=== PATIENT | male | born 1965 | race Hispanic/Latino ===

== ENCOUNTER → 2017-12-14 | Outpatient (CLI) | payer BC ==
[~2017-12-14] MED LIST: ASPI81TA40 PO; LEVO500T2 PO; LOSA25TA16 PO; METR500T PO
[2017-12-14 12:37] LABS: CREATININE 1.2 mg/dL (0.5-1.5)
== END | disposition home or self-care (01) ==
LOC: LAB 11:51
PROVIDERS: ATTEND Family Medicine
DX: R10.9 Unspecified abdominal pain (principal)
CPT/HCPCS: 36415; 82565; 84520

== ENCOUNTER → 2017-12-14 | Outpatient (CLI) | payer BC, SELFPAY ==
[~2017-12-14] MED LIST changes: +DIATR MEGLU/DIATRIZOATE SODIUM 30 ML BOTTLE ONE; +IOHEXOL-350 75 ML VIAL IV ONE
== END | disposition home or self-care (01) ==
LOC: RAH 11:17
PROVIDERS: ATTEND Family Medicine
DX: K76.0 Fatty (change of) liver, not elsewhere classified (principal)
CPT/HCPCS: 74177; Q9963; Q9967

== ENCOUNTER 2019-10-02 00:15 | Inpatient (IN) | payer BC, OTHER ==
[~2019-10-02] VITALS: Ht 180.3 cm; Wt 91.9 kg
[2019-10-02] MEDS ORDERED: AZITHROMYCIN 500MG+NS 250ML 250 ML IV ONE (01:57)
[2019-10-02] MEDS ORDERED: CEFTRIAXONE SODIUM 1 GM ONE (01:57)
[2019-10-02] MEDS ORDERED: SODIUM CHLORIDE 0.9% 50 ML IV ONE (01:59)
[2019-10-02] MEDS ORDERED: DEXTROSE 50%-WATER 50 ML DISP.SYRIN IV PRN (03:15)
[2019-10-02] MEDS ORDERED: ALBUTEROL INHALER 90MCG/INH IH PRN (03:15)
[2019-10-02] MEDS ORDERED: METHYLPREDNISOLONE SOD SUCC 40MG/ML 1ML IVP SCH (03:15)
[2019-10-02] MEDS ORDERED: GLUCAGON 1MG KIT 1 MG ML IM PRN (03:15)
[2019-10-02] MEDS ORDERED: SODIUM CHLORIDE 0.9% 1000ML 1,000 ML IV SCH (03:16)
[2019-10-02] MEDS ORDERED: DIPHENHYDRAMINE HCL 25 MG CAPSULE PO PRN (03:30)
[2019-10-02] MEDS ORDERED: NITROGLYCERIN 0.4 MG SL TAB SL PRN (03:30)
[2019-10-02] MEDS ORDERED: ACETAMINOPHEN 325 MG TAB PO PRN ×2 (03:30)
[2019-10-02] MEDS ORDERED: IOHEXOL-350 75 ML VIAL IV ONE (03:34)
[2019-10-02] MEDS ORDERED: SODIUM CHLORIDE 0.9% 1000ML 1,000 ML IV ONE (04:05)
[2019-10-02] MEDS ORDERED: METHYLPREDNISOLONE SOD SUCC 40MG/ML 1ML ONE ×4 (04:05→21:04)
[2019-10-02] MEDS: INSULIN HUMULIN R 100 UNIT/ML 3ML SQ SCH ×4 (07:30→21:00)
[2019-10-02] MEDS ORDERED: ENOXAPARIN SODIUM 30 MG/0.3 ML SQ ONE (08:18)
[2019-10-02] MEDS ORDERED: PANTOPRAZOLE SODIUM 40 MG TABLET.DR ONE (08:19)
[2019-10-02] MEDS ORDERED: ENOXAPARIN SODIUM 30 MG/0.3 ML SQ SCH (09:00)
[2019-10-02] MEDS ORDERED: PANTOPRAZOLE SODIUM 40 MG TABLET.DR PO SCH (09:00)
[2019-10-02] MEDS: ZOSYN 3.375GM+NS 50ML 50 ML IV SCH ×2 (13:00→21:00)
[2019-10-02] MEDS ORDERED: ALBUTEROL INHALER 90MCG/INH IH ONE (14:05)
--- NOTE | 2019-10-02 16:21 | NUR ---
SPOKE TO PATIENT ON THE PHONE FOR DC PLANNING ACTIVE, EMPLOYED, DRIVES, NO DME, LIVES WITH 2 CHILDREN AND SPOUSE MARÍA ELENA WHO WILL PROVIDE TRANSPORT. WHOLE FAMILY COVID +. ON OXYGEN AT THIS TIME. DCP IS HOME , POSS NEED FOR O2 AT DISCHARGE Addendum: 10/02/19 at 1622 by LUZ CORNELL RN CM Amended: Links added.
[2019-10-02] MEDS ORDERED: METHYLPREDNISOLONE SOD SUCC 125MG/2ML VIAL IVP SCH (20:00)
[2019-10-02] MEDS ORDERED: ACETAMINOPHEN EXTRA STRENGTH 500 MG TABLET ONE (20:57)
[2019-10-02] MEDS: ENOXAPARIN SODIUM 100 MG/1 ML SQ SCH (21:00)
[2019-10-02] MEDS: FAMOTIDINE 20MG TAB 20 MG TAB PO SCH (21:00)
[2019-10-02] MEDS ORDERED: ENOXAPARIN SODIUM 100 MG/1 ML SQ ONE (22:56)
[2019-10-02] MEDS ORDERED: ZOSYN 3.375GM+NS 50ML 50 ML IV ONE (22:56)
[2019-10-02] MEDS ORDERED: FAMOTIDINE/PF 20 MG/2 ML VIAL IV ONE (22:57)
[2019-10-03] MEDS ORDERED: METHYLPREDNISOLONE SOD SUCC 125MG/2ML VIAL ONE ×3 (01:08→18:22)
[2019-10-03] MEDS ORDERED: ZOSYN 3.375GM+NS 50ML 50 ML IV ONE ×2 (01:08→15:15)
[2019-10-03] MEDS ORDERED: AZITHROMYCIN 500MG+NS 250ML 250 ML IV ONE (01:08)
[2019-10-03] MEDS: ZOSYN 3.375GM+NS 50ML 50 ML IV SCH ×3 (05:00→21:00)
[2019-10-03] MEDS: INSULIN HUMULIN R 100 UNIT/ML 3ML SQ SCH ×4 (07:30→21:00)
[2019-10-03] MEDS ORDERED: INSULIN HUMULIN R 100 UNIT/ML 3ML ONE ×4 (08:50→21:29)
[2019-10-03] MEDS: ENOXAPARIN SODIUM 100 MG/1 ML SQ SCH ×2 (09:00→21:00)
[2019-10-03] MEDS: FAMOTIDINE 20MG TAB 20 MG TAB PO SCH ×2 (09:00→21:00)
[2019-10-03] MEDS ORDERED: CEFTRIAXONE SODIUM 1 GM IV SCH (09:00)
[2019-10-03] MEDS: AZITHROMYCIN 500MG+NS 250ML 250 ML IV SCH (09:00)
[2019-10-03] MEDS ORDERED: FAMOTIDINE 20MG TAB 20 MG TAB ONE ×2 (09:19→21:14)
[2019-10-03] MEDS ORDERED: CEFTRIAXONE SODIUM 1 GM ONE (09:20)
[2019-10-03] MEDS ORDERED: ENOXAPARIN SODIUM 30 MG/0.3 ML SQ ONE (09:20)
[2019-10-03] MEDS ORDERED: SODIUM CHLORIDE 0.9% 100 ML IV ONE (09:22)
[2019-10-03] MEDS: METHYLPREDNISOLONE SOD SUCC 125MG/2ML VIAL IVP SCH ×2 (15:30→23:30)
[2019-10-03] MEDS ORDERED: GUAIFENESIN SUGAR-FREE 100 MG/5 ML UDCUP ONE (21:13)
[2019-10-03] MEDS ORDERED: ENOXAPARIN SODIUM 100 MG/1 ML SQ ONE (21:14)
[2019-10-04 03:35] VITALS: BP 134/69; PULSE 95; RESP 22; TEMP 97.6
[2019-10-04] MEDS: ZOSYN 3.375GM+NS 50ML 50 ML IV SCH ×3 (04:49→20:08)
[2019-10-04] MEDS: METHYLPREDNISOLONE SOD SUCC 125MG/2ML VIAL IVP SCH ×3 (06:59→20:06)
--- NOTE | 2019-10-04 07:22 | NUR ---
BEDSIDE REPORT GIVEN TO LUIS WILKERSON; VSS; NO S/S DISTRESS NOTED; RELINQUISHED PT CARE AT THIS TIME
[2019-10-04] MEDS: INSULIN HUMULIN R 100 UNIT/ML 3ML SQ SCH ×4 (07:30→20:10)
[2019-10-04 07:58] VITALS: BP 117/76; PULSE 69; RESP 18; TEMP 97.6
--- NOTE | 2019-10-04 08:00 | NUR ---
RECEIVED PATIENT SITTING ON BED WITH NO C/O SOB. HE IS ON 4L O2 PER NC. MORNING VS SHOWED O2 SAT OF 96%. I DECREASED FLOW TO 2L. FULL ASSESSMENT DONE. PT STILL C/O DRY COUGH. ENHANCED PRECAUTIONS MAINTAINED. CALL LIGHT WITHIN REACH.
[2019-10-04] MEDS: AZITHROMYCIN 500MG+NS 250ML 250 ML IV SCH (08:31)
[2019-10-04] MEDS: FAMOTIDINE 20MG TAB 20 MG TAB PO SCH ×2 (08:31→20:08)
[2019-10-04] MEDS: ENOXAPARIN SODIUM 100 MG/1 ML SQ SCH ×2 (08:32→20:07)
[2019-10-04 11:04] VITALS: BP 131/69; PULSE 89; RESP 20; TEMP 98
--- NOTE | 2019-10-04 13:30 | NUR ---
DR. MOTTA IS MAKING HIS ROUNDS. ALSO SPOKE WITH PT'S PCP DR. PINEDA OF [facility] ABOUT PT'S CONDITION.
[2019-10-04 15:39] VITALS: BP 127/80; PULSE 58; RESP 18; TEMP 97.9
[2019-10-04 20:00] VITALS: BP 122/58; PULSE 75; RESP 19; TEMP 97.8
[2019-10-04 23:23] VITALS: BP 125/72; PULSE 72; RESP 19; TEMP 98.1
[2019-10-05] MEDS: GUAIFENESIN SUGAR-FREE 100 MG/5 ML UDCUP PO PRN (03:12)
[2019-10-05 04:13] VITALS: BP 120/74; PULSE 70; RESP 19; TEMP 97.5
[2019-10-05] MEDS: ZOSYN 3.375GM+NS 50ML 50 ML IV SCH ×3 (04:48→20:05)
[2019-10-05] MEDS: INSULIN HUMULIN R 100 UNIT/ML 3ML SQ SCH ×4 (06:25→20:41)
--- NOTE | 2019-10-05 07:15 | NUR ---
BEDSIDE REPORT GIVEN TO LUIS OGDEN; VSS; NO S/S DISTRESS NOTED; RN AWARE THAT PLASMA TRANSFUSION PENDING PER BLOOD BANK,CONSENT SIGNED; RELINQUISHED PT CARE AT THIS TIME
[2019-10-05 08:00] VITALS: BP 108/62; PULSE 61; RESP 18; TEMP 98.3
--- NOTE | 2019-10-05 08:00 | NUR ---
AM ASSESSMENT PT SITTING IN BED, WATCHING TV. A/O X 3. OCC SOB ON EXERTION. NO DISTRESS NOTED. 02 NC @ 2L. DENIES CHEST PAIN OR DISCOMFORT. DENIES PALPITATIONS. TELE: SR. DENIES N/V AND/OR DIARRHEA. UP AD JUANA, OCC MIN ASSIST. PT TO BE TRANSFUSED CONVALESCENT PLASMA TODAY. CONSENT ALREADY SIGNED. INSTRUCTED TO CALL FOR ASSISTANCE. CALL RICH W/IN REACH.
[2019-10-05] MEDS: ENOXAPARIN SODIUM 100 MG/1 ML SQ SCH ×2 (08:15→20:05)
[2019-10-05] MEDS: FAMOTIDINE 20MG TAB 20 MG TAB PO SCH ×2 (08:15→20:05)
[2019-10-05] MEDS: METHYLPREDNISOLONE SOD SUCC 125MG/2ML VIAL IVP SCH (08:15)
[2019-10-05] MEDS: METHYLPREDNISOLONE SOD SUCC 40MG/ML 1ML IVP SCH ×3 (09:00→20:05)
[2019-10-05] MEDS: AZITHROMYCIN 500MG+NS 250ML 250 ML IV SCH (09:44)
[2019-10-05 12:00] VITALS: BP 124/69; PULSE 65; RESP 18; TEMP 97.9
--- NOTE | 2019-10-05 12:10 | NUR ---
PLASMA TRANSFUSION OF PLASMA UNIT #1 STARTED @ THIS TIME. V/S RECORDED.
--- NOTE | 2019-10-05 13:45 | NUR ---
PLASMA PLASMA UNIT #1 TRANSFUSION COMPLETE. NO REACTION TO TRANSFUSION. PT TO RECEIVED 2nd UNIT OF PLASMA.
[2019-10-05 16:00] VITALS: BP 116/70; PULSE 59; RESP 18; TEMP 97.9
[2019-10-05 19:15] VITALS: BP 141/77; PULSE 58; RESP 17; TEMP 98.5
[2019-10-05 23:22] VITALS: BP 143/79; PULSE 62; RESP 17; TEMP 98.6
[2019-10-06] MEDS: GUAIFENESIN SUGAR-FREE 100 MG/5 ML UDCUP PO PRN (00:09)
--- NOTE | 2019-10-06 00:25 | NUR ---
2ND PLASMA STARTED AT THIS TIME. VSWNL. PT STATES HE IS NOTING IMPROVEMENTS. STATES HE HAD A BM.
[2019-10-06 03:15] VITALS: BP 143/82; PULSE 55; RESP 17; TEMP 97.9
[2019-10-06] MEDS: ZOSYN 3.375GM+NS 50ML 50 ML IV SCH ×3 (05:30→22:02)
[2019-10-06] MEDS: INSULIN HUMULIN R 100 UNIT/ML 3ML SQ SCH ×3 (05:52→22:05)
[2019-10-06] MEDS: FAMOTIDINE 20MG TAB 20 MG TAB PO SCH ×2 (08:10→22:03)
[2019-10-06] MEDS: AZITHROMYCIN 500MG+NS 250ML 250 ML IV SCH (08:10)
[2019-10-06] MEDS: ENOXAPARIN SODIUM 100 MG/1 ML SQ SCH ×2 (08:11→22:04)
[2019-10-06] MEDS: METHYLPREDNISOLONE SOD SUCC 40MG/ML 1ML IVP SCH ×3 (08:22→21:00)
[2019-10-06 09:27] VITALS: BP 114/75; PULSE 81; RESP 18; TEMP 97.9
[2019-10-06 12:24] VITALS: BP 145/72; PULSE 82; RESP 18; TEMP 97.6
[2019-10-06 17:18] VITALS: BP 136/83; PULSE 63; RESP 20; TEMP 97.8
[2019-10-06 19:00] VITALS: BP 149/87; PULSE 62; RESP 20; TEMP 98.1
[2019-10-06 23:57] VITALS: BP 140/95; PULSE 53; RESP 20; TEMP 97.8
[2019-10-07] MEDS: GUAIFENESIN SUGAR-FREE 100 MG/5 ML UDCUP PO PRN (03:05)
[2019-10-07 04:00] VITALS: BP 135/80; PULSE 48; RESP 20; TEMP 97.6
[2019-10-07] MEDS: ZOSYN 3.375GM+NS 50ML 50 ML IV SCH ×2 (04:36→13:39)
[2019-10-07] MEDS: INSULIN HUMULIN R 100 UNIT/ML 3ML SQ SCH ×4 (05:21→21:00)
[2019-10-07] MEDS: DEXAMETHASONE 4 MG TAB PO SCH (09:55)
[2019-10-07] MEDS: FAMOTIDINE 20MG TAB 20 MG TAB PO SCH ×2 (09:55→22:00)
[2019-10-07] MEDS: AZITHROMYCIN 500MG+NS 250ML 250 ML IV SCH (09:56)
[2019-10-07] MEDS: ENOXAPARIN SODIUM 100 MG/1 ML SQ SCH ×2 (09:56→22:00)
[2019-10-07 09:59] VITALS: BP 131/87; PULSE 71; RESP 20; TEMP 97.6
[2019-10-07 13:52] VITALS: BP 128/80; PULSE 75; RESP 18; TEMP 98.1
[2019-10-07 16:00] VITALS: BP 136/77; PULSE 82; RESP 20; TEMP 98
--- NOTE | 2019-10-07 17:30 | NUR ---
O2 SAT PT AWAKE AND ALERT, DENIES CHEST, NO SOB OR LABORED RESPIRATIONS. PT HAS INTERMITTENT EPISODES OF DRY NON-PRODUCTIVE COUGH. PT HAS BEEN OFF OF O2 FOR 5 HOURS, O2 SAT 98% AT THIS TIME.
--- NOTE | 2019-10-07 18:24 | NUR ---
DRY COUGH PT IN ROOM, INTERMITTENT EPISODES OF DRY, NON-PRODUCTIVE COUGH. PRN ROBITUSSIN OFFERED, PT REFUSED AT THIS TIME. DENIES SOB OR LABORED RESPIRATIONS.
[2019-10-07 20:00] VITALS: BP 130/80; PULSE 66; RESP 19; TEMP 98
[2019-10-08 03:18] VITALS: BP 127/82; PULSE 59; RESP 17; TEMP 98.3
--- NOTE | 2019-10-08 04:28 | NUR ---
Assessment Patient is in the bed sleeping. He is not showing any S/S of distress. Vitals are stable and he is being closely monitored.
[2019-10-08] MEDS: INSULIN HUMULIN R 100 UNIT/ML 3ML SQ SCH ×4 (05:28→17:11)
[2019-10-08 07:30] VITALS: BP 119/80; PULSE 65; RESP 24; TEMP 97.7
[2019-10-08] MEDS: DEXAMETHASONE 4 MG TAB PO SCH (09:41)
[2019-10-08] MEDS: ENOXAPARIN SODIUM 100 MG/1 ML SQ SCH (09:41)
[2019-10-08] MEDS: FAMOTIDINE 20MG TAB 20 MG TAB PO SCH (09:41)
[2019-10-08 11:00] VITALS: BP 117/55; PULSE 77; RESP 24; TEMP 98
[2019-10-08 16:00] VITALS: BP 111/71; PULSE 71; RESP 26; TEMP 98.7
[2019-10-08] MEDS ORDERED: ACETYLCYSTEINE 600 MG CAPSULE PO SCH (21:00)
== END 2019-10-08 19:00 | disposition home or self-care (01) | DRG 177 ==
LOC: EDH 00:15 → EDHIP 02:20 → 4CH 10-04 03:15
PROVIDERS: ADMIT Internal Medicine; ATTEND Internal Medicine
PROC: 30233K1 Transfusion of Nonautologous Frozen Plasma into Peripheral Vein, Percutaneous Approach (ICD-10-PCS; principal; 2019-10-05)
DX: U07.1 COVID-19 (principal); J96.01 Acute respiratory failure with hypoxia; J12.89 Other viral pneumonia; I26.99 Other pulmonary embolism without acute cor pulmonale; K75.9 Inflammatory liver disease, unspecified; I11.9 Hypertensive heart disease without heart failure; D64.9 Anemia, unspecified; E11.9 Type 2 diabetes mellitus without complications; Z82.49 Family history of ischemic heart disease and other diseases of the circulatory system; Z83.3 Family history of diabetes mellitus

== ENCOUNTER 2021-10-08 09:26 | Observation (INO) | payer OTHER ==
[~2021-10-08] VITALS: Ht 180.3 cm; Wt 96.4 kg
[~2021-10-08 09:26] MED LIST changes: +ACET600C6 PO; +APIX5TAB PO; +DEXA6TAB PO; -DIATR MEGLU/DIATRIZOATE SODIUM 30 ML BOTTLE ONE; -IOHEXOL-350 75 ML VIAL IV ONE; -LEVO500T2 PO; -LOSA25TA16 PO; +LOSA25TA41 PO; -METR500T PO
[2021-10-08 09:49] LABS: BASOPHILS % (AUTO) 0.3 % (0.0-5.0); EOSINOPHILS % (AUTO) 0.4 % (0.0-8.0); HEMATOCRIT 43.7 % (42-54); LYMPHOCYTES % (AUTO) 12.4 % (21.0-51.0); MEAN CORPUSCULAR HEMOGLOBIN 30.5 pg (27.0-33.0); MEAN CORPUSCULAR HGB CONC 33.4 g/dL (32.0-36.0); MEAN CORPUSCULAR VOLUME 91.2 fL (79-99); MONOCYTES % (AUTO) 11.7 % (3.0-13.0); NEUTROPHILS % (AUTO) 74.8 % (40.0-77.0); PLATELET COUNT (AUTO) 273 K/uL (130-400); RED BLOOD CELL COUNT(AUTO) 4.79 MIL/uL (4.50-6.20); RED CELL DISTRIBUTION WIDTH 13.4 % (11.0-15.5); WHITE BLOOD COUNT (AUTO) 17.5 K/uL (4.8-10.8)
[2021-10-08 09:58] LABS: CREATININE 1.3 mg/dL (0.5-1.5)
[2021-10-08] MEDS ORDERED: LACTATED RINGERS 1000ML 1,000 ML IV ONE (10:00)
[2021-10-08 10:02] LABS: ALBUMIN 3.7 g/dL (3.5-5.0); TOTAL PROTEIN, SERUM 8.4 g/dL (6.0-8.3)
[2021-10-08 10:47] LABS: APPEARANCE,URINE CLEAR (CLEAR); BILIRUBIN,URINE NEGATIVE (NEGATIVE); COLOR,URINE YELLOW (YELLOW); GLUCOSE, URINE (UA) NEGATIVE (NEGATIVE); KETONES,URINE 5 mg/dL (NEGATIVE); LEUKOCYTE ESTERASE ,URINE NEGATIVE (NEGATIVE); NITRATE,URINE NEGATIVE (NEGATIVE); OCCULT BLOOD,URINE NEGATIVE (NEGATIVE); PH,URINE 5.5 (5.0-8.0); PROTEIN,URINE NEGATIVE (NEGATIVE); UROBILINOGEN,URINE 0.2 mg/dL (0.2-1.0)
[2021-10-08] MEDS ORDERED: IOHEXOL 350 MG/ML 100ML INFUS..BTL IV ONE (11:14)
[2021-10-08 11:32] LABS: BACTERIA,URINE Rare /HPF (None Seen); RBC,URINE None Seen /HPF (0-1); SQUAMOUS EPITHELIAL CELL,UR Rare /HPF (0-2); WBC,URINE 0-1 /HPF (0-1)
[2021-10-08] MEDS ORDERED: MORPHINE 2 MG SYG IM ONE (13:30)
[2021-10-08] MEDS: ZOSYN 3.375GM +NS 50ML IV SCH (13:30)
[2021-10-08] MEDS ORDERED: ONDANSETRON 4MG INJ IV PRN (18:00)
[2021-10-08] MEDS ORDERED: KETOROLAC 15MG/ML VIAL (15MG/ML) IV PRN (18:30)
[2021-10-08] MEDS: 0.9%NACL 1000ML 1,000 ML IV SCH (18:33)
[2021-10-08 18:58] LABS: AMPHET/METH SCREEN,URINE NEGATIVE (NEGATIVE); BARBITURATE SCREEN, URINE NEGATIVE (NEGATIVE); BENZODIAZEPINES SCREEN,URINE NEGATIVE (NEGATIVE); CANNABINOID SCREEN,URINE NEGATIVE (NEGATIVE); COCAINE SCREEN,URINE NEGATIVE (NEGATIVE); OPIATE SCREEN,URINE NEGATIVE (NEGATIVE); PHENCYCLIDINE SCREEN,URINE NEGATIVE (NEGATIVE)
[2021-10-08 20:00] VITALS: BP 137/68
[2021-10-08] MEDS: METRONIDAZOLE 500MG/100ML BAG 100 ML IVPB SCH (21:54)
[2021-10-09] VITALS (7 sets, daily range): BP systolic 119–131; BP diastolic 66–78
[2021-10-09] MEDS: 0.9%NACL 1000ML 1,000 ML IV SCH ×2 (04:00→14:00)
[2021-10-09 04:45] LABS: HEMATOCRIT 39.9 % (42-54); MEAN CORPUSCULAR HEMOGLOBIN 29.9 pg (27.0-33.0); MEAN CORPUSCULAR HGB CONC 32.8 g/dL (32.0-36.0); MEAN CORPUSCULAR VOLUME 91.1 fL (79-99); RED BLOOD CELL COUNT(AUTO) 4.38 MIL/uL (4.50-6.20); RED CELL DISTRIBUTION WIDTH 13.3 % (11.0-15.5); WHITE BLOOD COUNT (AUTO) 13.3 K/uL (4.8-10.8)
[2021-10-09 04:46] LABS: HEMOGLOBIN A1C 8.9 % (4.0-6.0)
[2021-10-09 05:01] LABS: CREATININE 1.2 mg/dL (0.5-1.5); POTASSIUM 3.6 mmol/L (3.5-5.1)
[2021-10-09] MEDS: INSULIN HUMULIN R 100 UNIT/ML 3ML SQ SCH ×4 (06:00→16:50)
[2021-10-09] MEDS: METRONIDAZOLE 500MG/100ML BAG 100 ML IVPB SCH ×3 (06:08→21:43)
[2021-10-09] MEDS: LEVOFLOXACIN 750 MG/D5W 150 ML 150 ML IV SCH (09:51)
[2021-10-09] MEDS: PANTOPRAZOLE 40 MG/VIAL IVP SCH (09:52)
[2021-10-09] MEDS: ZOSYN 3.375GM +NS 50ML IV SCH (14:00)
[2021-10-09] MEDS ORDERED: ATOR10TA69 PO (14:10)
[2021-10-09] MEDS ORDERED: LOSA50TA64 PO (14:10)
[2021-10-09] MEDS ORDERED: METF-444 PO (14:11)
[2021-10-10] MEDS: 0.9%NACL 1000ML 1,000 ML IV SCH ×2 (01:39→10:00)
[2021-10-10 03:32] VITALS: BP 132/74
[2021-10-10 05:19] LABS: HEMATOCRIT 40.3 % (42-54); MEAN CORPUSCULAR HEMOGLOBIN 29.6 pg (27.0-33.0); MEAN CORPUSCULAR HGB CONC 32.5 g/dL (32.0-36.0); MEAN CORPUSCULAR VOLUME 91.2 fL (79-99); RED BLOOD CELL COUNT(AUTO) 4.42 MIL/uL (4.50-6.20); RED CELL DISTRIBUTION WIDTH 13.2 % (11.0-15.5); WHITE BLOOD COUNT (AUTO) 10.9 K/uL (4.8-10.8)
[2021-10-10 05:34] LABS: CREATININE 1.1 mg/dL (0.5-1.5); POTASSIUM 3.9 mmol/L (3.5-5.1)
[2021-10-10] MEDS: METRONIDAZOLE 500MG/100ML BAG 100 ML IVPB SCH (06:21)
[2021-10-10] MEDS: INSULIN HUMULIN R 100 UNIT/ML 3ML SQ SCH ×2 (07:30→11:32)
[2021-10-10 07:44] VITALS: BP 119/61
[2021-10-10] MEDS ORDERED: LEVO750T46 PO (08:45)
[2021-10-10] MEDS ORDERED: METR-172 PO (08:45)
[2021-10-10] MEDS: LEVOFLOXACIN 750 MG/D5W 150 ML 150 ML IV SCH (08:54)
[2021-10-10] MEDS: PANTOPRAZOLE 40 MG/VIAL IVP SCH (08:54)
[2021-10-10 10:52] VITALS: BP 120/75
== END 2021-10-10 12:05 | disposition home or self-care (01) ==
LOC: EDH 09:26 → EDHIP 18:00 → INTOOBSV 18:00 → 3DH 20:04
PROVIDERS: ADMIT Hospitalist; ATTEND Hospitalist
DX: K57.32 Diverticulitis of large intestine without perforation or abscess without bleeding (principal); Z20.822 Contact with and (suspected) exposure to COVID-19; D72.829 Elevated white blood cell count, unspecified; E11.9 Type 2 diabetes mellitus without complications; E78.00 Pure hypercholesterolemia, unspecified; I10 Essential (primary) hypertension; E78.5 Hyperlipidemia, unspecified; Z79.899 Other long term (current) drug therapy
CPT/HCPCS: 36415; 71045; 74177; 80048; 80053; 80305; 81001; 82150; 82550; 82948; 83036; 84484; 85025; 85027; 87635; 93005; 96361; 96365; 96366; 96367; 96372; 96375; 96376; C9113; G0378; J1815; J1956; J2543; J3490; J7030; Q9967